=== PATIENT | female | born 1955 | race Caucasian/White ===

== ENCOUNTER 2017-01-24 20:36 | Inpatient (IN) ==
[2017-01-24] MEDS ORDERED: *HR* OxyCODONE/APAP 5/325 TABLET PO PRN (23:08)
[2017-01-25 05:33] LABS: Basophils # 0.1 K/mcL (0.0-0.2); Basophils % 0.5 %; Eosinophils # 0.9 K/mcL (0.0-0.6); Eosinophils % 7.9 %; Hemoglobin 11.3 g/dL (11.5-15.4); Immature Granulocytes % 0.2 % (0-4); Lymphocytes # 4.6 K/mcL (0.6-4.6); Lymphocytes % 41.6 %; Mean Corpuscular HGB Conc 32.3 g/dL (31.6-35.5); Mean Corpuscular Hemoglobin 29.7 pg (28.0-33.3); Mean Corpuscular Volume 92.1 fL (83.0-100.0); Mean Platelet Volume 10.3 fL (9.4-12.4); Monocytes # 1.1 K/mcL (0.0-1.3); Monocytes % 10.3 %; Neutrophils # 4.3 K/mcL (1.6-8.9); Platelet Count 272 K/mcL (140-400); Red Cell Distribution Width 14.9 % (11.5-14.5); Segmented Neutrophils % 39.5 %
[2017-01-25 05:45] LABS: BUN/Creatinine Ratio 17 (6-26); Blood Urea Nitrogen 13 mg/dL (7-20); Calcium 8.3 mg/dL (8.6-10.8); Carbon Dioxide 25 mEq/L (19-29); Chloride 108 mEq/L (98-109); Glucose 92 mg/dL (70-99); Osmolality,Calculated 294 (280-300); Potassium 3.8 mEq/L (3.5-4.5); Sodium 142 mEq/L (136-145); eGFR For African Americans > 60 (> 60); eGFR For Non-African Americans > 60 (> 60)
[2017-01-25] MEDS: *HR* OxyCODONE/APAP 5/325 TABLET PO PRN ×3 (06:00→15:07)
[2017-01-25] MEDS: hydroCHLOROthiazide 25 MG TABLET PO SCH (08:41)
[2017-01-25] MEDS: Multivit/Ca/Min/Fe/FA 1 TAB TABLET PO SCH (08:42)
[2017-01-25] MEDS: Aspirin Enteric Coated 325 MG Tablet PO SCH ×2 (08:42→20:07)
[2017-01-25] MEDS: Furosemide 40 MG TABLET PO SCH (08:42)
[2017-01-25] MEDS: Gabapentin 300 MG CAPSULE PO SCH ×3 (08:42→20:07)
[2017-01-25] MEDS: Venlafaxine XR (24 HR) 150 MG CAP.ER.24H PO SCH (08:42)
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
[2017-01-26] MEDS: *HR* OxyCODONE/APAP 5/325 TABLET PO PRN ×4 (02:37→20:06)
[2017-01-26] MEDS: Multivit/Ca/Min/Fe/FA 1 TAB TABLET PO SCH (08:15)
[2017-01-26] MEDS: hydroCHLOROthiazide 25 MG TABLET PO SCH (08:15)
[2017-01-26] MEDS: Gabapentin 300 MG CAPSULE PO SCH ×3 (08:15→20:06)
[2017-01-26] MEDS: Furosemide 40 MG TABLET PO SCH (08:16)
[2017-01-26] MEDS: Aspirin Enteric Coated 325 MG Tablet PO SCH ×2 (08:17→20:05)
[2017-01-26] MEDS: Venlafaxine XR (24 HR) 150 MG CAP.ER.24H PO SCH (08:17)
--- NOTE | 2017-01-26 11:20 | Internal Med Progress Note ---
Date of Encounter: 01/26/17 Time of Encounter: 11:16 - Assessment and plan (1) S/P hardware removal Current Visit: Yes Status: Acute Assessment and plan: She appears be doing well from a therapy point of view. Her pain control is appropriate. (2) Status post surgical manipulation of ankle joint Current Visit: Yes Status: Acute Assessment and plan: As above. (3) Status post osteotomy Current Visit: Yes Status: Acute (4) Depression Current Visit: Yes Status: Acute Qualifiers: Depression Type: unspecified Qualified Code(s): F32.9 - Major depressive disorder, single episode, unspecified (5) GERD (gastroesophageal reflux disease) Current Visit: Yes Status: Acute Qualifiers: Esophagitis presence: without esophagitis Qualified Code(s): K21.9 - Gastro -esophageal reflux disease without esophagitis (6) History of blood clots Current Visit: No Status: Chronic (7) TBI (traumatic brain injury) Current Visit: No Status: Chronic Qualifiers: Encounter type: sequela Loss of consciousness presence/duration: with LOC of unspecified duration Qualified Code(s): S06.9X9S - Unspecified intracranial injury with loss of consciousness of unspecified duration, sequela (8) Hypoxia Current Visit: Yes Status: Acute Assessment and plan: It was noted that due to the night and early this morning her saturations were in the 80s. With stimulation she is in the 90s. No pulmonary symptoms. Her lungs are clear. No clinical signs of DVT/PE. Records from [facility] revealed that she required oxygen when necessary there as well. She is a previous smoker. We will use oxygen when necessary. She denies any sleep apnea signs or symptoms. No reporting of excessive snoring. - Subjective Interval history: Patient denies any acute symptoms. She denies any chest pain, shortness of breath, dyspnea, GI or symptoms. She had a small bowel movement this morning. She thinks her pain control is adequate with her medication. The staff has reported that her oxygen levels, particularly when she is sleeping , have dropped down into the 80s. One as low as 82 range. With stimulation she is about 89 or 90%. She denies any long-term oxygen requirements. She is a previous smoker. Records from [facility] reveal that she was using oxygen temporarily there. No fevers or chills or infectious symptoms. - Constitutional Vitals: Temp Pulse Resp BP Pulse Ox 98.0 F 86 18 112/76 92 01/26/17 07:07 01/26/17 10:14 01/26/17 10:14 01/26/17 07:07 01/26/17 10:14 General appearance: Present: cooperative, A&O X 3, no acute distress, answers questions appropriately - Respiratory Respiratory exam: Present: CTAB. Absent: rales, respiratory distress, stridor, wheezes, tachypnea - Cardiovascular Cardiovascular exam: Present: RRR, +S1, +S2. Absent: systolic murmur - GI/Abdominal GI/Abdominal exam: Present: soft. Absent: mass, tenderness - Extremities Exam Additional comments: Right lower extremity without swelling. No calf tenderness. Stockings in place. Left lower extremity is elevated and the postoperative dressing is still intact. Her exposed toes are warm and dry and good capillary refill. Internal Medicine: Result - Labs CBC & Chem 7: 01/25/17 05:00 01/25/17 05:00 - VTE Documentation of Mechanical Device: Graduated compression elastic hosiery Consult Discharge Plan - Plan Referrals: Osman Zacarias MD [Primary Care Provider] -
[2017-01-26] MEDS ORDERED: Albuterol 2.5 MG/3 ML NEBULIZER IH PRN (14:48)
--- NOTE | 2017-01-26 14:52 | Event Note ---
Date of Encounter: 01/26/17 Time of Encounter: 14:50 I was asked to see this patient again as she has developed wheezing and difficulties maintaining her saturation even with oxygen. She denies any dyspneic, cardiac type chest pain. She does have some cough and "phlegm production". She denies any chest pain, pleuritic pain, hemoptysis. She is a previous smoker who quit several years ago. She required oxygen at [facility] intermittently. Earlier today we had to apply 2 L to keep her saturations above 92%. She had no wheezing at that time. Evaluation shows and expiratory wheezing throughout. No crackles or rales. No respiratory distress. Requiring 4 L of oxygen to maintain saturations in the 90s. We will arrange chest x-ray, d-dimer, CBC, BMP and nebulizer treatment. Consideration for workup for pulmonary embolism depending on these results.
[2017-01-26 15:45] LABS: Basophils # 0.1 K/mcL (0.0-0.2); Basophils % 0.5 %; Eosinophils # 1.1 K/mcL (0.0-0.6); Hematocrit 35.7 % (35.3-44.9); Hemoglobin 11.3 g/dL (11.5-15.4); Immature Granulocytes % 0.4 % (0-4); Lymphocytes # 5.9 K/mcL (0.6-4.6); Lymphocytes % 43.9 %; Mean Corpuscular HGB Conc 31.7 g/dL (31.6-35.5); Mean Corpuscular Hemoglobin 29.7 pg (28.0-33.3); Mean Corpuscular Volume 93.7 fL (83.0-100.0); Mean Platelet Volume 10.1 fL (9.4-12.4); Monocytes % 7.7 %; Neutrophils # 5.3 K/mcL (1.6-8.9); Platelet Count 287 K/mcL (140-400); Red Blood Count 3.81 M/mcL (3.82-4.97); Red Cell Distribution Width 15.2 % (11.5-14.5); Segmented Neutrophils % 39.5 %
[2017-01-26 16:15] LABS: BUN/Creatinine Ratio 22 (6-26); Blood Urea Nitrogen 17 mg/dL (7-20); Calcium 8.7 mg/dL (8.6-10.8); Carbon Dioxide 28 mEq/L (19-29); Chloride 103 mEq/L (98-109); Glucose 98 mg/dL (70-99); Osmolality,Calculated 296 (280-300); Potassium 4.4 mEq/L (3.5-4.5); Sodium 142 mEq/L (136-145); eGFR For African Americans > 60 (> 60); eGFR For Non-African Americans > 60 (> 60)
[2017-01-26] MEDS ORDERED: Heparin 25,000 UNIT/500 ML D5W 25,000 UNIT/500 ML MLS IVC SCH (18:30)
[2017-01-26] MEDS ORDERED: *HR* Heparin 5,000 UNIT/ML VIAL IVP PRN ×2 (18:30)
[2017-01-26] MEDS ORDERED: *HR* Heparin 5,000 UNIT/ML VIAL IVP ONE (18:30)
--- NOTE | 2017-01-26 18:39 | Event Note ---
Date of Encounter: 01/26/17 Time of Encounter: 18:37 I just received a phone call stating that the CT PE study was positive for multiple pulmonary emboli largest being in the right upper lobe area. No cardiac strain noted. She is sitting up and eating her dinner without difficulty. Her lungs show diminished breath sounds but clear, the wheezing is now gone. Her saturation is 92% on 3 L. Previously she had have 4 L to maintain saturations in the 90s. She denies any chest pain. I explained to her that she has multiple emboli in her lungs. I would like to start heparin drip and send her back to [facility], closer to her surgeon. We are awaiting a call back regarding the transfer
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
[2017-01-26 18:50] LABS: INR 0.9; Prothrombin Time 10.1 Seconds (9.4-12.1)
[2017-01-26 18:53] LABS: Activated Partial Thrombo Time 27.5 Seconds (26.0-36.0)
[2017-01-26 19:32] VITALS: BP 122/74
== END 2017-01-26 20:28 | disposition short-term general hospital (02) | DRG 559 ==
LOC: INPGRE 21:46
PROVIDERS: ADMIT Family Medicine; ATTEND Family Medicine

== ENCOUNTER 2018-08-27 12:44 | Inpatient (IN) ==
[2018-08-27] MEDS ORDERED: Acetaminophen 325 MG TABLET PO PRN (16:42)
[2018-08-27] MEDS ORDERED: Mag Hydrox/Al Hydrox/Simeth 30 ML UDC PO PRN (16:43)
[2018-08-27] MEDS: *HR* Rivaroxaban 10 MG TABLET PO SCH (18:11)
[2018-08-27] MEDS: Gabapentin 300 MG CAPSULE PO SCH (22:55)
[2018-08-27] MEDS: Fluticasone Propionate Nasal 50 MCG/SPRAY BOTTLE NS SCH (22:57)
[2018-08-28 05:37] LABS: Basophils # 0.1 K/mcL (0.0-0.2); Basophils % 0.5 %; Eosinophils # 1.4 K/mcL (0.0-0.6); Eosinophils % 13.7 %; Hematocrit 36.3 % (35.3-44.9); Hemoglobin 11.1 g/dL (11.5-15.4); Immature Granulocytes % 0.2 % (0-4); Lymphocytes # 3.8 K/mcL (0.6-4.6); Lymphocytes % 37.5 %; Mean Corpuscular HGB Conc 30.6 g/dL (31.6-35.5); Mean Corpuscular Hemoglobin 29.1 pg (28.0-33.3); Mean Platelet Volume 10.4 fL (9.4-12.4); Monocytes # 0.9 K/mcL (0.0-1.3); Monocytes % 9.1 %; Neutrophils # 3.9 K/mcL (1.6-8.9); Platelet Count 400 K/mcL (140-400); Red Blood Count 3.82 M/mcL (3.82-4.97)
[2018-08-28 06:02] LABS: Alanine Aminotransferase 13 Units/L (7-52); Albumin 3.1 g/dL (3.5-5.7); Albumin/Globulin Ratio 1.1 (1.1-2.2); Alkaline Phosphatase 67 Units/L (34-104); Aspartate Amino Transferase 20 Units/L (13-39); BUN/Creatinine Ratio 18 (6-26); Bilirubin,Total 0.3 mg/dL (0.3-1.0); Blood Urea Nitrogen 13 mg/dL (8-23); Calcium 8.6 mg/dL (8.6-10.3); Carbon Dioxide 28 mEq/L (23-29); Chloride 108 mEq/L (98-107); Globulin 2.8 g/dL (2.4-3.5); Glucose 101 mg/dL (70-105); Osmolality,Calculated 286 (280-300); Potassium 4.4 mEq/L (3.5-5.1); Sodium 138 mEq/L (136-145); Total Protein 5.9 g/dL (6.4-8.9); eGFR For Non-African Americans > 60 (> 60)
[2018-08-28] MEDS ORDERED: *HR* OxyCODONE/APAP 5/325 TABLET PO PRN (06:35)
[2018-08-28] MEDS: hydroCHLOROthiazide 25 MG TABLET PO SCH (09:50)
[2018-08-28] MEDS: Gabapentin 300 MG CAPSULE PO SCH ×3 (09:50→21:06)
[2018-08-28] MEDS: Sulfamethoxazole/Trimeth SS 1 TAB PO SCH ×2 (09:51→21:05)
[2018-08-28] MEDS: Furosemide 40 MG TABLET PO SCH (09:51)
[2018-08-28] MEDS: Multivit/Ca/Min/Fe/FA 1 TAB TABLET PO SCH (09:51)
[2018-08-28] MEDS: Venlafaxine XR (24 HR) 150 MG CAP.ER.24H PO SCH (09:51)
[2018-08-28] MEDS: Fluticasone Propionate Nasal 50 MCG/SPRAY BOTTLE NS SCH ×2 (09:56→21:08)
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
[2018-08-28] MEDS: *HR* OxyCODONE/APAP 5/325 TABLET PO PRN ×2 (12:43→21:07)
[2018-08-28] MEDS: *HR* Rivaroxaban 10 MG TABLET PO SCH (17:08)
[2018-08-29] MEDS: *HR* OxyCODONE/APAP 5/325 TABLET PO PRN ×2 (09:33→17:55)
[2018-08-29] MEDS: hydroCHLOROthiazide 25 MG TABLET PO SCH (09:33)
[2018-08-29] MEDS: Sulfamethoxazole/Trimeth SS 1 TAB PO SCH ×2 (09:34→20:53)
[2018-08-29] MEDS: Venlafaxine XR (24 HR) 150 MG CAP.ER.24H PO SCH (09:34)
[2018-08-29] MEDS: Multivit/Ca/Min/Fe/FA 1 TAB TABLET PO SCH (09:34)
[2018-08-29] MEDS: Furosemide 40 MG TABLET PO SCH (09:34)
[2018-08-29] MEDS: Gabapentin 300 MG CAPSULE PO SCH ×3 (09:34→20:54)
[2018-08-29] MEDS: Fluticasone Propionate Nasal 50 MCG/SPRAY BOTTLE NS SCH ×2 (09:35→20:54)
--- NOTE | 2018-08-29 12:04 | Internal Med Progress Note ---
Date of Encounter: 08/29/18 Time of Encounter: 12:02 - Assessment and plan (1) Status post osteotomy Current Visit: No Status: Acute Assessment and plan: How has wound VAC in place and is receiving antibiotics, as before. Has follow- up scheduled this coming week. (2) Depression Current Visit: No Status: Chronic Assessment and plan: Clinically stable. Qualifiers: Depression Type: unspecified Qualified Code(s): F32.9 - Major depressive disorder, single episode, unspecified (3) TBI (traumatic brain injury) Current Visit: No Status: Chronic Assessment and plan: Apparently, fax memory chronically. Qualifiers: Encounter type: sequela Loss of consciousness presence/duration: with LOC of unspecified duration Qualified Code(s): S06.9X9S - Unspecified intracranial injury with loss of consciousness of unspecified duration, sequela (4) GERD (gastroesophageal reflux disease) Current Visit: No Status: Chronic Assessment and plan: Clinically stable. Qualifiers: Esophagitis presence: without esophagitis Qualified Code(s): K21.9 - Gastro-esophageal reflux disease without esophagitis (5) Bilateral pulmonary embolism Current Visit: No Status: Acute Assessment and plan: On Xarelto as prophylaxis. (6) Cough Current Visit: No Status: Chronic Assessment and plan: I suspect atelectasis and have encouraged use of incentive spirometer. Will use cough suppressant, as well. - Subjective Interval history: The patient notes that she is coughing, "hard," and not much productivity of phlegm. We discussed the use of incentive spirometer, as well. She denies other problems. She would like Tessalon Perles and Robitussin both of which are acceptable. Patient has no complaint of chest discomfort, dyspnea, orthopnea, palpitations, nausea or vomiting, constipation or diarrhea, other changes in bowel habits, difficulty with urination, rash or itching, or other new complaints, except as mentioned above. Review of systems is otherwise negative. I discussed management of her care with nursing staff. - Constitutional Vitals: Temp Pulse Resp BP Pulse Ox 98.3 F 76 16 128/78 90 08/29/18 07:00 08/29/18 07:00 08/29/18 07:00 08/29/18 07:00 08/29/18 07:00 Exam: Examination: (Except as mentioned above): General: In no apparent distress. Alert and oriented 3. Nondiaphoretic. The patient coughs during exam. Head: Atraumatic and normocephalic. Respiratory: No use of accessory muscles. Lungs are clear throughout. I hear no rales or rhonchi. Normal airflow. Cardiovascular: Regular rate and rhythm without murmur appreciated. Abdomen: Bowel sounds are normal. No hepatosplenomegaly mass or tenderness appreciated. Obese and therefore difficult to palpate deeply. Extremities: No cyanosis clubbing or edema. Wound VAC and dressing are in place on the right ankle. Skin: Warm and non-diaphoretic with no new lesions noted. Internal Medicine: Result - Labs CBC & Chem 7: 08/28/18 04:31 08/28/18 04:31 Consult Discharge Plan - Plan Referrals: Casandra Sosa MD [Primary Care Provider] -
[2018-08-29] MEDS: Benzonatate 100 MG CAPSULE PO PRN ×2 (14:08→21:14)
[2018-08-29] MEDS: *HR* Rivaroxaban 10 MG TABLET PO SCH (17:56)
[2018-08-29] MEDS ORDERED: Menthol 9.1 MG LOZENGE PO PRN (21:43)
[2018-08-30] MEDS: *HR* OxyCODONE/APAP 5/325 TABLET PO PRN ×3 (05:57→22:20)
[2018-08-30] MEDS: Fluticasone Propionate Nasal 50 MCG/SPRAY BOTTLE NS SCH ×2 (08:49→20:27)
[2018-08-30] MEDS: Venlafaxine XR (24 HR) 150 MG CAP.ER.24H PO SCH (08:49)
[2018-08-30] MEDS: Sulfamethoxazole/Trimeth SS 1 TAB PO SCH ×2 (08:50→20:25)
[2018-08-30] MEDS: hydroCHLOROthiazide 25 MG TABLET PO SCH (08:50)
[2018-08-30] MEDS: Furosemide 40 MG TABLET PO SCH (08:50)
[2018-08-30] MEDS: Gabapentin 300 MG CAPSULE PO SCH ×3 (08:50→20:26)
[2018-08-30] MEDS: Multivit/Ca/Min/Fe/FA 1 TAB TABLET PO SCH (08:51)
[2018-08-30] MEDS: *HR* Rivaroxaban 10 MG TABLET PO SCH (15:59)
--- NOTE | 2018-08-30 17:18 | Internal Med Progress Note ---
Date of Encounter: 08/30/18 Time of Encounter: 14:30 - Assessment and plan (1) Status post osteotomy Current Visit: No Status: Acute Assessment and plan: How has wound VAC in place and is receiving antibiotics, as before. Has follow- up scheduled this coming week. (2) Depression Current Visit: No Status: Chronic Assessment and plan: Clinically stable. Qualifiers: Depression Type: unspecified Qualified Code(s): F32.9 - Major depressive disorder, single episode, unspecified (3) TBI (traumatic brain injury) Current Visit: No Status: Chronic Assessment and plan: Apparently chronic and at baseline. Qualifiers: Encounter type: sequela Loss of consciousness presence/duration: with LOC of unspecified duration Qualified Code(s): S06.9X9S - Unspecified intracranial injury with loss of consciousness of unspecified duration, sequela (4) GERD (gastroesophageal reflux disease) Current Visit: No Status: Chronic Assessment and plan: No current signs or symptoms. Qualifiers: Esophagitis presence: without esophagitis Qualified Code(s): K21.9 - Gastro-esophageal reflux disease without esophagitis (5) Bilateral pulmonary embolism Current Visit: No Status: Acute Assessment and plan: We will continue her anti-coagulation as before. (6) Cough Current Visit: No Status: Chronic Assessment and plan: This seems like a viral infection but we will follow. - Subjective Interval history: The cough is persistent. She did pass her cough drop but she just received the first one, moments ago. She is not producing any phlegm. We talked about antibiotics and the fact that we would follow her CBC, temperature curve, etc. Patient has no complaint of chest discomfort, dyspnea, orthopnea, palpitations, nausea or vomiting, constipation or diarrhea, other changes in bowel habits, difficulty with urination, rash or itching, or other new complaints, except as mentioned above. Review of systems is otherwise negative. I discussed management of her care with nursing staff. - Constitutional Vitals: Temp Pulse Resp BP Pulse Ox 98.4 F 77 16 125/77 93 08/30/18 07:00 08/30/18 07:00 08/30/18 07:00 08/30/18 07:00 08/30/18 07:00 Exam: Examination: (Except as mentioned above): General: In no apparent distress. Alert and oriented 3. Nondiaphoretic. Head: Atraumatic and normocephalic. Respiratory: No use of accessory muscles. Lungs are clear throughout without rales or rhonchi. Normal airflow. Cardiovascular: Regular rate and rhythm without murmur appreciated. Abdomen: Bowel sounds are normal. No hepatosplenomegaly mass or tenderness appreciated. Obese and therefore difficult to palpate deeply. Extremities: No cyanosis clubbing or edema. Still with vacuum in place. Not examined, today. Skin: Warm and non-diaphoretic with no new lesions noted. Internal Medicine: Result - Labs CBC & Chem 7: 08/28/18 04:31 08/28/18 04:31 Consult Discharge Plan - Plan Referrals: Casandra Sosa MD [Primary Care Provider] -
[2018-08-30] MEDS: Benzonatate 100 MG CAPSULE PO PRN (20:26)
[2018-08-31] MEDS: Benzonatate 100 MG CAPSULE PO PRN (05:07)
[2018-08-31] MEDS: *HR* OxyCODONE/APAP 5/325 TABLET PO PRN ×2 (05:07→15:48)
[2018-08-31 05:51] LABS: Basophils % 0.5 %; Eosinophils # 0.9 K/mcL (0.0-0.6); Hematocrit 36.7 % (35.3-44.9); Hemoglobin 11.7 g/dL (11.5-15.4); Immature Granulocytes % 0.3 % (0-4); Lymphocytes # 3.5 K/mcL (0.6-4.6); Mean Corpuscular HGB Conc 31.9 g/dL (31.6-35.5); Mean Corpuscular Hemoglobin 29.5 pg (28.0-33.3); Mean Corpuscular Volume 92.4 fL (83.0-100.0); Mean Platelet Volume 9.6 fL (9.4-12.4); Monocytes # 0.9 K/mcL (0.0-1.3); Monocytes % 11.1 %; Neutrophils # 2.3 K/mcL (1.6-8.9); Platelet Count 360 K/mcL (140-400); Red Blood Count 3.97 M/mcL (3.82-4.97); Red Cell Distribution Width 14.9 % (11.5-14.5); Segmented Neutrophils % 30.1 %
[2018-08-31 06:05] LABS: Alanine Aminotransferase 18 Units/L (7-52); Albumin 3.2 g/dL (3.5-5.7); Albumin/Globulin Ratio 1.1 (1.1-2.2); Alkaline Phosphatase 79 Units/L (34-104); Aspartate Amino Transferase 26 Units/L (13-39); BUN/Creatinine Ratio 25 (6-26); Bilirubin,Total 0.2 mg/dL (0.3-1.0); Blood Urea Nitrogen 16 mg/dL (8-23); Calcium 8.7 mg/dL (8.6-10.3); Carbon Dioxide 28 mEq/L (23-29); Chloride 103 mEq/L (98-107); Globulin 2.9 g/dL (2.4-3.5); Glucose 109 mg/dL (70-105); Osmolality,Calculated 292 (280-300); Potassium 3.5 mEq/L (3.5-5.1); Sodium 140 mEq/L (136-145); Total Protein 6.1 g/dL (6.4-8.9); eGFR For Non-African Americans > 60 (> 60)
[2018-08-31] MEDS: Multivit/Ca/Min/Fe/FA 1 TAB TABLET PO SCH (08:49)
[2018-08-31] MEDS: Sulfamethoxazole/Trimeth SS 1 TAB PO SCH ×2 (08:49→21:19)
[2018-08-31] MEDS: Furosemide 40 MG TABLET PO SCH (08:49)
[2018-08-31] MEDS: hydroCHLOROthiazide 25 MG TABLET PO SCH (08:49)
[2018-08-31] MEDS: Gabapentin 300 MG CAPSULE PO SCH ×3 (08:49→21:20)
[2018-08-31] MEDS: Venlafaxine XR (24 HR) 150 MG CAP.ER.24H PO SCH (08:49)
[2018-08-31] MEDS: Fluticasone Propionate Nasal 50 MCG/SPRAY BOTTLE NS SCH ×2 (08:52→21:21)
--- NOTE | 2018-08-31 13:40 | Internal Med Progress Note ---
Addendum entered and electronically signed by Jagdeep Olivares MD 08/31/18 14:28: I have personally performed a face to face evaluation on this patient. I have r eviewed and agree with the care plan. History and Exam by me shows: Patient wants her home medicines. She states that she takes Effexor 187.5 mg [facility]. We will switch to this dose. She also wants to take her own Vesicare from home but she gives us a bottle that is unlabeled in terms of the medications there. I told nursing that we need to have her bring a bottle from home and that we could use that. The patient also states that she is not going to be compliant with her wound VAC. I explained that she needs continue this until seen by her specialist, later this week. Social service is arranging this to be supplied at home. Discussed care with other providers and/or nursing. Patient has no complaint of chest discomfort, dyspnea, orthopnea, palpitations, nausea or vomiting, constipation or diarrhea, other changes in bowel habits, difficulty with urination, rash or itching, or other new complaints, except as mentioned above. Review of systems is otherwise negative. Examination: (Except as mentioned above): General: In no apparent distress. Alert and oriented 3. Nondiaphoretic. Head: Atraumatic and normocephalic. Respiratory: No use of accessory muscles. Lungs are clear throughout. Normal airflow. Cardiovascular: Regular rate and rhythm without murmur appreciated. Abdomen: Bowel sounds are normal. No hepatosplenomegaly mass or tenderness appreciated. Obese and therefore difficult to palpate deeply. Extremities: No cyanosis clubbing or change in edema. The wound is still dressed with wound VAC in place and this was not addressed, by me. Skin: Warm and non-diaphoretic with no new lesions noted. Plan is to be discharge in 2 days. Memory and complaints have been an issue. Original Note: Date of Encounter: 08/31/18 Time of Encounter: 13:38 - Assessment and plan (1) Status post osteotomy Current Visit: Yes Status: Acute Assessment and plan: Pain controlled with Percocet. Wound back to left lower extremity. Follow up with surgeon as scheduled. Continue to follow along with wound care. (2) TBI (traumatic brain injury) Current Visit: Yes Status: Chronic Assessment and plan: History of TBI, poor memory. Qualifiers: Encounter type: sequela Loss of consciousness presence/duration: with LOC of unspecified duration Qualified Code(s): S06.9X9S - Unspecified intracranial injury with loss of consciousness of unspecified duration, sequela - Time Spent With Patient less than 15 minutes - Subjective Interval history: Patient resting in bed currently, participating well with therapy. Wound VAC remains to left lower extremity. States pain is controlled with Percocet. Denies fever, chills, nausea vomiting or diarrhea. States bowels are moving as normal. Maintaining appetite and hydration. - Constitutional Vitals: Temp Pulse Resp BP Pulse Ox 97.8 F 71 14 107/73 94 08/31/18 07:00 08/31/18 07:00 08/31/18 07:00 08/31/18 07:00 08/31/18 07:00 General appearance: Present: cooperative, A&O X 3, pleasant, no acute distress, answers questions appropriately - Head Head exam: Present: atraumatic, normocephalic - Eye Eye exam: Present: PERRL, conjuntiva pink, sclera anicteric Pupils: Present: PERRL - Neck Neck exam general surgery: Present: supple, trachea midline. Absent: lymphadenopathy - Respiratory Respiratory exam: Present: CTAB. Absent: accessory muscle use, rales, rhonchi, wheezes - Cardiovascular Cardiovascular exam: Present: RRR, +S1, +S2. Absent: diastolic murmur, gallop, rubs, systolic murmur - GI/Abdominal GI/Abdominal exam: Present: normal bowel sounds, soft, no peritoneal signs. Absent: distended, tenderness - Extremities Exam Extremities exam: Present: warm, radial pulses palpable and symmetrical. Absent: calf tenderness, cyanotic, pedal edema Additional comments: Wound VAC to left lower extremity intact. - Neurological Exam Neurological exam: Present: CN II-XII intact, oriented X3, no focal deficits. Absent: pronater drift, facial droop, speech deficit - Skin Skin exam: Present: dry, intact Internal Medicine: Result - Labs CBC & Chem 7: 08/31/18 05:25 08/31/18 05:25 Labs: Short CBC 08/31/18 Range/Units 05:25 WBC 7.7 (4.3-11.1) K/mcL Hgb 11.7 (11.5-15.4) g/dL Hct 36.7 (35.3-44.9) % Plt Count 360 (140-400) K/mcL Neutrophils # 2.3 (1.6-8.9) K/mcL BMP 08/31/18 05:25 Sodium 140 Potassium 3.5 Chloride 103 Carbon Dioxide 28 BUN 16 Creatinine 0.65 Glucose 109 H Calcium 8.7 Liver Function 08/31/18 Range/Units 05:25 Total Bilirubin 0.2 L (0.3-1.0) mg/dL AST 26 (13-39) Units/L ALT 18 (7-52) Units/L Alkaline Phosphatase 79 (34-104) Units/L Albumin 3.2 L (3.5-5.7) g/dL Consult Discharge Plan - Plan Referrals: Casandra Sosa MD [Primary Care Provider] -
[2018-08-31] MEDS: *HR* Rivaroxaban 10 MG TABLET PO SCH (17:06)
[2018-09-01] MEDS: *HR* OxyCODONE/APAP 5/325 TABLET PO PRN ×3 (01:40→20:27)
[2018-09-01] MEDS: hydroCHLOROthiazide 25 MG TABLET PO SCH (08:54)
[2018-09-01] MEDS: Venlafaxine XR (24 HR) 150 MG CAP.ER.24H PO SCH (08:55)
[2018-09-01] MEDS: Gabapentin 300 MG CAPSULE PO SCH ×3 (08:55→20:24)
[2018-09-01] MEDS: Venlafaxine XR (24 HR) 37.5 MG CAP.ER.24H PO SCH ×2 (08:56→09:27)
[2018-09-01] MEDS: Multivit/Ca/Min/Fe/FA 1 TAB TABLET PO SCH (08:56)
[2018-09-01] MEDS: Fluticasone Propionate Nasal 50 MCG/SPRAY BOTTLE NS SCH ×2 (08:56→20:24)
[2018-09-01] MEDS: Furosemide 40 MG TABLET PO SCH (08:56)
[2018-09-01] MEDS: Sulfamethoxazole/Trimeth SS 1 TAB PO SCH ×2 (08:56→20:23)
--- NOTE | 2018-09-01 10:58 | Internal Med Progress Note ---
Addendum entered and electronically signed by Jagdeep Olivares MD 09/01/18 13:56: Patient wants to go home after her visit tomorrow. She is hoping not to use wound VAC, no matter what is found on her visit. She denies new complaints. Discussed care with other providers and/or nursing. Patient has no complaint of chest discomfort, dyspnea, orthopnea, palpitations, nausea or vomiting, constipation or diarrhea, other changes in bowel habits, difficulty with urination, rash or itching, or other new complaints, except as mentioned above. Review of systems is otherwise negative. Examination: (Except as mentioned above): General: In no apparent distress. Alert and oriented 3. Nondiaphoretic. Head: Atraumatic and normocephalic. Respiratory: No use of accessory muscles. Lungs are clear throughout. Normal airflow. Cardiovascular: Regular rate and rhythm without murmur appreciated. Abdomen: Bowel sounds are normal. No hepatosplenomegaly mass or tenderness appreciated. Obese and therefore difficult to palpate deeply. Patient is examined upright in chair and this also limits exam. Extremities: No cyanosis clubbing or edema. Wound VAC is in place and dressing is not removed, at this time. Skin: Warm and non-diaphoretic with no new lesions noted. Original Note: Date of Encounter: 09/01/18 Time of Encounter: 10:56 - Assessment and plan (1) Status post osteotomy Current Visit: Yes Status: Acute Assessment and plan: Pain controlled with Percocet. Wound back to left lower extremity. Follow up with surgeon as scheduled. Continue to follow along with wound care. (2) TBI (traumatic brain injury) Current Visit: Yes Status: Chronic Assessment and plan: History of TBI, poor memory. Qualifiers: Encounter type: sequela Loss of consciousness presence/duration: with LOC of unspecified duration Qualified Code(s): S06.9X9S - Unspecified intracranial injury with loss of consciousness of unspecified duration, sequela - Time Spent With Patient less than 15 minutes - Subjective Interval history: \ participating well with therapy. Wound VAC remains to left lower extremity. States pain is controlled with Percocet. Denies fever, chills, nausea vomiting or diarrhea. States bowels are moving as normal. Maintaining appetite and hydration. - Constitutional Vitals: Temp Pulse Resp BP Pulse Ox 98.1 F 86 18 107/73 90 09/01/18 07:00 09/01/18 07:00 09/01/18 07:00 09/01/18 07:00 09/01/18 07:00 General appearance: Present: cooperative, A&O X 3, pleasant, no acute distress, answers questions appropriately - Head Head exam: Present: atraumatic, normocephalic - Eye Eye exam: Present: PERRL, conjuntiva pink, sclera anicteric Pupils: Present: PERRL - Neck Neck exam general surgery: Present: supple, trachea midline. Absent: lymphadenopathy - Respiratory Respiratory exam: Present: CTAB. Absent: accessory muscle use, rales, rhonchi, wheezes - Cardiovascular Cardiovascular exam: Present: RRR, +S1, +S2. Absent: diastolic murmur, gallop, rubs, systolic murmur - GI/Abdominal GI/Abdominal exam: Present: normal bowel sounds, soft, no peritoneal signs. Absent: distended, tenderness - Extremities Exam Extremities exam: Present: warm, radial pulses palpable and symmetrical. Absent: calf tenderness, cyanotic, pedal edema Additional comments: wound vac intact to LLE, ankle area. - Neurological Exam Neurological exam: Present: CN II-XII intact, oriented X3, no focal deficits. Absent: pronater drift, facial droop, speech deficit - Skin Skin exam: Present: dry, intact Internal Medicine: Result - Labs CBC & Chem 7: 08/31/18 05:25 08/31/18 05:25 Consult Discharge Plan - Plan Referrals: Casandra Sosa MD [Primary Care Provider] -
[2018-09-01] MEDS: *HR* Rivaroxaban 10 MG TABLET PO SCH (15:12)
--- NOTE | 2018-09-02 09:15 | Internal Med Progress Note ---
Addendum entered and electronically signed by Jagdeep Olivares MD 09/02/18 14:20: I have personally performed a face to face evaluation on this patient. I have r eviewed and agree with the care plan. History and Exam by me shows: Patient is without complaint. She is upset because she has a miscommunication about transportation to her surgery visit, today. Dr. Benitez has been in contact with the physician's ward assistant who will see her, this afternoon, to determine how her wound looks. Hopefully, the wound VAC can be discontinued but if not, will again need to attempt insurance approval is has denied this for home use. She is for anticipated discharge tomorrow or the next day. Discussed care with other providers and/or nursing. Patient has no complaint of chest discomfort, dyspnea, orthopnea, palpitations, nausea or vomiting, constipation or diarrhea, other changes in bowel habits, difficulty with urination, rash or itching, or other new complaints, except as mentioned above. Review of systems is otherwise negative. Examination: (Except as mentioned above): General: In no apparent distress. Alert and oriented 3. Nondiaphoretic. Head: Atraumatic and normocephalic. Respiratory: No use of accessory muscles. Lungs are clear throughout. Normal airflow. Cardiovascular: Regular rate and rhythm without murmur appreciated. Abdomen: Bowel sounds are normal. No hepatosplenomegaly mass or tenderness appreciated. Obese and therefore difficult to palpate deeply. Patient is examined upright in chair and this also limits exam. Extremities: No cyanosis clubbing or edema. Skin: Warm and non-diaphoretic with no new lesions noted. Original Note: Date of Encounter: 09/02/18 Time of Encounter: 09:13 - Assessment and plan (1) Status post osteotomy Current Visit: Yes Status: Acute Assessment and plan: Patient continues with wound VAC and dressing in place to left lower leg wound. He is scant drainage received per wound VAC. Patient is to have follow-up for evaluation of wound VAC today with further recommendations pending. Arrangements are being made for continuation of wound VAC at home if it is continued. Patient remains afebrile. Wound is been well managed with current medications. Patient continues with physical therapy and progress as well. (2) GERD (gastroesophageal reflux disease) Current Visit: No Status: Chronic Assessment and plan: No acute issues. Patient denies any current reflux. We will continue with current medications Qualifiers: Esophagitis presence: without esophagitis Qualified Code(s): K21.9 - Gastro-esophageal reflux disease without esophagitis (3) TBI (traumatic brain injury) Current Visit: Yes Status: Chronic Assessment and plan: No acute issues. No behavior issues reported per nursing. Patient with history of short-term memory loss. Currently conversation is appropriate with no acute neurological changes noted and examined Qualifiers: Encounter type: sequela Loss of consciousness presence/duration: with LOC of unspecified duration Qualified Code(s): S06.9X9S - Unspecified intracranial injury with loss of consciousness of unspecified duration, sequela - Time Spent With Patient less than 15 minutes - Subjective Interval history: Patient appears relaxed and currently denies any discomforts or shortness of breath. Patient states that her left leg pain increases while mobilizing but is presently tolerable with current pain medications. Patient is due to go for a follow-up appointment today to evaluate her left leg wound. Patient continues with wound VAC in place, with arrangements being made for continuation of wound VAC at home if it is continued per follow-up visit today. Patient complains of slight productive cough which she states is secondary to a postnasal drip. Patient denies any facial tenderness. No lymphedema. Patient denies any fever or chills. Patient denies sore throat - Constitutional Vitals: Temp Pulse Resp BP Pulse Ox 98.3 F 74 16 115/71 93 09/02/18 06:42 09/02/18 06:42 09/02/18 06:42 09/02/18 06:42 09/02/18 06:42 General appearance: Present: cooperative, A&O X 3, pleasant, no acute distress, answers questions appropriately - Head Head exam: Present: atraumatic, normocephalic - Eye Eye exam: Present: PERRL, conjuntiva pink, sclera anicteric Pupils: Present: PERRL - Neck Neck exam general surgery: Present: supple, trachea midline. Absent: lymphadenopathy - Respiratory Respiratory exam: Present: CTAB. Absent: accessory muscle use, rales, rhonchi, wheezes Additional comments: Lungs are diminished throughout lower [place] but otherwise clear to auscultation. Respiratory effort appears relaxed. Patient complains of slight productive cough but no sputum has been received. - Cardiovascular Cardiovascular exam: Present: RRR, +S1, +S2. Absent: diastolic murmur, gallop, rubs, systolic murmur - GI/Abdominal GI/Abdominal exam: Present: normal bowel sounds, soft, no peritoneal signs. Absent: distended, tenderness - Extremities Exam Extremities exam: Present: warm, radial pulses palpable and symmetrical. Absent: calf tenderness, cyanotic, pedal edema Additional comments: Left lower leg nonhealing wound with dressing dry and intact. Wound VAC in place with scant [place] drainage received. Slight swelling noted to left foot - Neurological Exam Neurological exam: Present: CN II-XII intact, oriented X3, no focal deficits. Absent: pronater drift, facial droop, speech deficit - Skin Skin exam: Present: dry, intact Internal Medicine: Result - Labs CBC & Chem 7: 08/31/18 05:25 08/31/18 05:25 Consult Discharge Plan - Plan Referrals: Casandra Sosa MD [Primary Care Provider] -
[2018-09-02] MEDS: *HR* OxyCODONE/APAP 5/325 TABLET PO PRN ×2 (09:29→18:08)
[2018-09-02] MEDS: Venlafaxine XR (24 HR) 150 MG CAP.ER.24H PO SCH (09:30)
[2018-09-02] MEDS: Venlafaxine XR (24 HR) 37.5 MG CAP.ER.24H PO SCH (09:30)
[2018-09-02] MEDS: Gabapentin 300 MG CAPSULE PO SCH ×3 (09:31→21:21)
[2018-09-02] MEDS: Furosemide 40 MG TABLET PO SCH (09:31)
[2018-09-02] MEDS: hydroCHLOROthiazide 25 MG TABLET PO SCH (09:31)
[2018-09-02] MEDS: Fluticasone Propionate Nasal 50 MCG/SPRAY BOTTLE NS SCH ×2 (09:32→21:21)
[2018-09-02] MEDS: Sulfamethoxazole/Trimeth SS 1 TAB PO SCH ×2 (09:32→21:21)
[2018-09-02] MEDS: Multivit/Ca/Min/Fe/FA 1 TAB TABLET PO SCH (09:32)
[2018-09-02] MEDS: *HR* Rivaroxaban 10 MG TABLET PO SCH (18:08)
[2018-09-03 06:45] VITALS: BP 105/67
[2018-09-03] MEDS: *HR* OxyCODONE/APAP 5/325 TABLET PO PRN (07:34)
[2018-09-03] MEDS: Multivit/Ca/Min/Fe/FA 1 TAB TABLET PO SCH (07:35)
[2018-09-03] MEDS: Gabapentin 300 MG CAPSULE PO SCH (07:35)
[2018-09-03] MEDS: Sulfamethoxazole/Trimeth SS 1 TAB PO SCH (07:35)
[2018-09-03] MEDS: Furosemide 40 MG TABLET PO SCH (07:35)
[2018-09-03] MEDS: Venlafaxine XR (24 HR) 37.5 MG CAP.ER.24H PO SCH (07:35)
[2018-09-03] MEDS: hydroCHLOROthiazide 25 MG TABLET PO SCH (07:35)
[2018-09-03] MEDS: Venlafaxine XR (24 HR) 150 MG CAP.ER.24H PO SCH (07:35)
[2018-09-03] MEDS: Fluticasone Propionate Nasal 50 MCG/SPRAY BOTTLE NS SCH (07:47)
--- NOTE | 2018-09-03 09:51 | Discharge Summary ---
Addendum entered and electronically signed by Jagdeep Olivares MD 09/03/18 12:11: I have personally performed a face to face evaluation on this patient. I have r eviewed and agree with the care plan. History and Exam by me shows: Patient is without complaint. She is pleased to be going home. She has questions about medicine and arrange for her to have gabapentin for a week until she can have follow-up. She will also be on Xarelto for 2 more weeks per surgery recommendations. Discussed care with other providers and/or nursing. Patient has no complaint of chest discomfort, dyspnea, orthopnea, palpitations, nausea or vomiting, constipation or diarrhea, other changes in bowel habits, difficulty with urination, rash or itching, or other new complaints, except as mentioned above. Review of systems is otherwise negative. Examination: (Except as mentioned above): General: In no apparent distress. Alert and oriented 3. Nondiaphoretic. Head: Atraumatic and normocephalic. Respiratory: No use of accessory muscles. Lungs are clear throughout. Normal airflow. Cardiovascular: Regular rate and rhythm without murmur appreciated. Abdomen: Bowel sounds are normal. No hepatosplenomegaly mass or tenderness appreciated. Obese and therefore difficult to palpate deeply. Patient is examined upright in chair and this also limits exam. Extremities: No cyanosis clubbing or change in edema. Skin: Warm and non-diaphoretic with no new lesions noted. Original Note: Date of Encounter: 09/03/18 Time of Encounter: 09:49 - Discharge Diagnosis (1) Status post osteotomy Priority: Primary Status: Acute Comments: Patient was discussed for this facility for rehabilitation due to weakness secondary to her left leg surgery and for wound care to a nonhealing lower left leg wound. Wound currently has wound VAC in place which during her stay has received scant drainage . Wound continues to heal, and was evaluated by her orthopedic surgeon who has requested continued use of wound care following her discharge from this facility. Patient's insurance has denied her wound VAC, stating she did not meet criteria. An appeal has been placed and the wound will be treated with wet-to-dry dressing changes as listed in the transfer orders until a wound VAC be placed by home health services. Patient will continue physical therapy through home health services and will receive nursing care for daily wound evaluation and treatment. Patient is continue follow-up with orthopedic surgeon and is recommended to follow up with her primary care ph ysician within one week. Patient was given a prescription for pain medication and Bactrim. Continue wound vac to left lower leg wound if available. If wound vac unavailable, then do dialy wet to dry dressing changes with compression wrap over the wound and leg to reduce swelling. (2) GERD (gastroesophageal reflux disease) Priority: Secondary Status: Chronic Comments: No acute issues during her stay at this facility. Patient will continue with home medications and follow-up with PCP. Qualifiers: Esophagitis presence: without esophagitis Qualified Code(s): K21.9 - Gastro-esophageal reflux disease without esophagitis (3) TBI (traumatic brain injury) Priority: Secondary Status: Chronic Comments: Patient with a remote history of TBI and with a history of short-term memory loss. No acute issues during her stay. No behavior issues reported per nursing. Patient is continue with home health services and home medications. Recommended to follow-up with PCP in one week Qualifiers: Encounter type: sequela Loss of consciousness presence/duration: with LOC of unspecified duration Qualified Code(s): S06.9X9S - Unspecified intracranial injury with loss of consciousness of unspecified duration, sequela Hospital course: Ms. Barrios is a 63 year old female, who was transferred from [facility] where she had surgical treatment of a I&D on her left leg nonhealing wound at an [facility] by an orthopedic surgeon. Patient had an elective surgery approximately one year ago to her left ankle which per medical records showed it as being healed. Patient developed a open wound to the surgical site, requiring surgical intervention. Patient currently has a dressing to the left lower leg that is dry and intact with a wound VAC in place. Wound VAC will be removed once she is discharged and patient is to receive wet-to-dry dressing changes until a wound VAC be placed per home health nursing. Patient's wound VAC for home use has been denied current insurance. An appeal has been placed with the plan of home health nursing to apply to wound VAC if it is made available. 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 Patient complains of mild pain to her left leg during repositioning, but states that her pain medication has been effective in making pain tolerable. Patient is to continue physical therapy through home health services. Continue with current oral antibiotics Discharge discussed with: patient Time spent discussing smoking cessation with patient: 3 to 10 minutes - Time Spent with Patient Total time spent providing and/or coordinating discharge services: Time spent: Less than 30 minutes - Discharge Medications Prescriptions: No Action hydroCHLOROthiazide [Hydrochlorothiazide] 25 mg PO DAILY Venlafaxine XR (24 HR) [Effexor Xr] 150 mg PO DAILY Solifenacin Succinate [Vesicare] 10 mg PO DAILY Omeprazole [PriLOSEC] 20 mg PO DAILY PRN PRN Reason: acid reflux Multivit-Min/FA/Lycopen/Lutein [Centrum Silver Tablet] 1 each PO DAILY Furosemide [Lasix] 40 mg PO DAILY Potassium Chloride 10 meq PO BID Fluticasone Propionate Nasal [Flonase] 50 mcg IN BID Rivaroxaban [Xarelto] 10 mg PO 1700 Cyclobenzaprine [Flexeril] 7.5 mg PO QID PRN PRN Reason: Spasms Sulfamethoxazole/Trimethoprim [Sulfamethoxazole-Tmp Ss Tablet] 1 tab PO BID Guaifenesin [Mucus ER] 600 mg PO BID Gabapentin [Neurontin] 300 mg PO TID Home Medications: Furosemide [Lasix] 40 mg PO DAILY 11/03/15 [History] Multivit-Min/FA/Lycopen/Lutein [Centrum Silver Tablet] 1 each PO DAILY 11/03/15 [History] Omeprazole [PriLOSEC] 20 mg PO DAILY PRN 11/03/15 [History] Solifenacin Succinate [Vesicare] 10 mg PO DAILY 11/03/15 [History] Venlafaxine XR (24 HR) [Effexor Xr] 150 mg PO DAILY 11/03/15 [History] hydroCHLOROthiazide [Hydrochlorothiazide] 25 mg PO DAILY 11/03/15 [History] Potassium Chloride 10 meq PO BID 03/16/16 [History] Cyclobenzaprine [Flexeril] 7.5 mg PO QID PRN 08/27/18 [History] Fluticasone Propionate Nasal [Flonase] 50 mcg IN BID 08/27/18 [History] Gabapentin [Neurontin] 300 mg PO TID 08/27/18 [History] Guaifenesin [Mucus ER] 600 mg PO BID 08/27/18 [History] Rivaroxaban [Xarelto] 10 mg PO 1700 08/27/18 [History] Sulfamethoxazole/Trimethoprim [Sulfamethoxazole-Tmp Ss Tablet] 1 tab PO BID 08/27/18 [History] Allergies/Adverse Reactions: Allergy/AdvReac Type Severity Reaction Status Date / Time nabumetone [From Relafen] Allergy Vomiting Verified 01/24/17 22:45 Date of admission: 08/27/18 15:57 Primary care physician: Casandra Sosa MD Consults: 08/27/18 16:38 Consult to Occupational Therapy [CONS] Routine Comment: Evaluate, develop and implement POC Reason for Consult: eval Does patient have active BEDREST order?: No Is patient medically & hemodynamically stable?: Yes Consult to Physical Medicine/Rehab [CONS] Routine Reason for Consult: rehab admit Call Completed: Yes Consult to Physical Therapy [CONS] Routine Comment: Evaluate, develop and implement POC Reason for Consult: eval Does patient have active BEDREST order?: No Is patient medically & hemodynamically stable?: Yes Consult to Recreational Therapy [CONS] Routine Comment: Evaluate, develop and implement POC Consult to Role Player [CONS] Routine Reason for SW Consult: d/c planning Discharging clinician: Jagdeep Olivares - Constitutional Vitals: Temp Pulse Resp BP Pulse Ox 98.7 F 78 18 105/67 95 09/03/18 06:39 09/03/18 06:39 09/03/18 06:39 09/03/18 06:39 09/03/18 06:39 General appearance: Present: cooperative, A&O X 3, pleasant, no acute distress, answers questions appropriately - Head Head exam: Present: atraumatic, normocephalic - Eye Eye exam: Present: PERRL, conjuntiva pink, sclera anicteric Pupils: Present: PERRL - Neck Neck exam general surgery: Present: supple, trachea midline. Absent: lymphadenopathy - Respiratory Respiratory exam: Present: CTAB. Absent: accessory muscle use, rales, rhonchi, wheezes Additional comments: Lungs are clear throughout upper [place] but diminished bases. Respiratory effort appears relaxed. No productive cough - Cardiovascular Cardiovascular exam: Present: RRR, +S1, +S2. Absent: diastolic murmur, gallop, rubs, systolic murmur - GI/Abdominal GI/Abdominal exam: Present: normal bowel sounds, soft, no peritoneal signs. Absent: distended, tenderness - Extremities Exam Extremities exam: Present: warm, radial pulses palpable and symmetrical. Absent: calf tenderness, cyanotic, pedal edema Additional comments: Lower left leg with wound VAC dressing in place. Scant [place] drainage received. - Neurological Exam Neurological exam: Present: CN II-XII intact, oriented X3, no focal deficits. Absent: pronater drift, facial droop, speech deficit - Skin Skin exam: Present: dry, intact - Patient Status Disposition: Home Health Service Condition: Good Functional capacity at discharge: uses cane/walker Overall status at discharge: patient is progressing back to baseline - Discharge Instructions Follow Up With: Casandra Sosa MD [Primary Care Provider] - 09/14/18 3:40 pm - Diet and Activity Activity: ambulate only with your walker, as per physical therapy Diet: advance to your usual diet, low fat, low cholesterol, low salt diet
--- NOTE | 2018-09-03 10:02 | Physician Discharge Referral ---
Addendum entered and electronically signed by Jagdeep Olivares MD 09/03/18 12:11: Original Note: Home Health/Hosp Referral Info Transfer to: Home Health Provider in Charge Post Discharge: PCP - Diagnosis (1) Status post osteotomy Priority: Primary Status: Acute (2) GERD (gastroesophageal reflux disease) Priority: Secondary Status: Chronic (3) TBI (traumatic brain injury) Priority: Secondary Status: Chronic - Respiratory Orders Smoking Cessation: Smoking cessation has been advised. For more information, call the [employer] Quit Line at 4-334-TQRE-NOW. - Dressing/Wound Care Site: left lower leg Type of Dressing/Treatments w/Frequency: Continue wound vac to left lower leg wound if available. If wound vac unavailable, then do dialy wet to dry dressing changes with compression wrap over the wound and leg to reduce swelling. - Diet/Nutrition Diet/Nutrition Orders: No Added Salt (CROW), Cardiac, No Concentrated Sweets - Activity Activity Orders: Up ad zoraida, Walker - Services Needed Following services are medically necessary services: Nursing, Home Health Aide, Physical Therapy Other Treatments: Continue wound vac to left lower leg wound if available. If wound vac unavailable, then do dialy wet to dry dressing changes with compression wrap over the wound and leg to reduce swelling. - Transfer Medications Home Medications: Furosemide [Lasix] 40 mg PO DAILY 11/03/15 [History] Multivit-Min/FA/Lycopen/Lutein [Centrum Silver Tablet] 1 each PO DAILY 11/03/15 [History] Omeprazole [PriLOSEC] 20 mg PO DAILY PRN 11/03/15 [History] Solifenacin Succinate [Vesicare] 10 mg PO DAILY 11/03/15 [History] Venlafaxine XR (24 HR) [Effexor Xr] 150 mg PO DAILY 11/03/15 [History] hydroCHLOROthiazide [Hydrochlorothiazide] 25 mg PO DAILY 11/03/15 [History] Potassium Chloride 10 meq PO BID 03/16/16 [History] Cyclobenzaprine [Flexeril] 7.5 mg PO QID PRN 08/27/18 [History] Fluticasone Propionate Nasal [Flonase] 50 mcg IN BID 08/27/18 [History] Gabapentin [Neurontin] 300 mg PO TID 08/27/18 [History] Guaifenesin [Mucus ER] 600 mg PO BID 08/27/18 [History] Rivaroxaban [Xarelto] 10 mg PO 1700 08/27/18 [History] Sulfamethoxazole/Trimethoprim [Sulfamethoxazole-Tmp Ss Tablet] 1 tab PO BID 08/27/18 [History] Allergies/Adverse Reactions: Allergy/AdvReac Type Severity Reaction Status Date / Time nabumetone [From Relafen] Allergy Vomiting Verified 01/24/17 22:45 Certification: Further, I certify that my clinical findings support that this patient is homebound (i.e. absences from home require considerable and taxing effort and are for medical reasons or [employer] services or infrequently or short duration when for other reasons) because: Homebound Reason: Post-surgery restriction and or conditions limit ability to leave home, Leaving home requires considerable and taxing effort due to condition Attestation: My signature below is to certify that this patient is under my care and that I, or nurse practitioner, or a physician's safety assistant working with me, has a [id number] encounter with this patient.
== END 2018-09-03 12:12 | disposition home health service (06) | DRG 559 ==
LOC: INPGRE 15:57